=== PATIENT | female | born 1950 | race Caucasian/White ===

== ENCOUNTER 2025-02-14 15:35 | Emergency (ER) | payer OTHER, MEDICARE ==
[~2025-02-14] VITALS: Ht 170.2 cm; Wt 128.6 kg
[2025-02-14] MEDS ORDERED: ACETAMINOPHEN 500 MG TAB PO ONE (15:45)
[2025-02-14 17:09] VITALS: BP 145/55
== END 2025-02-14 17:09 | disposition home or self-care (01) ==
LOC: ED 15:35
DX: S76.312A Strain of muscle, fascia and tendon of the posterior muscle group at thigh level, left thigh, initial encounter (principal); W22.8XXA Striking against or struck by other objects, initial encounter; Z88.5 Allergy status to narcotic agent
CPT/HCPCS: 73502; 73560; 99283; A9270